=== PATIENT | male | born 1950 | race Caucasian/White ===

== ENCOUNTER → 2022-04-01 | Day surgery (SDC) | payer OTHER ==
[~2022-04-01] VITALS: Ht 185 cm; Wt 113.8 kg
[~2022-04-01] MED LIST: AMLODIPINE-BEN1 EAC2 PO; ASPIRIN CHEWABL81 MG PO; B COMPLEX1 EACH PO; CALCIUM + D3 E1 EACH PO; CHILDREN'S ASPI81 MG PO; FEOSOL325 MG PO; GLUCOTROL XL5 MG PO; JANUVIA50 M1 PO; JANUVIA50 MG PO; LIPITOR40 MG PO; LOVAZA1 GM PO; METFORMIN HCL500 MG PO; PERCOCET 5-3251 EACH PO; VITAMIN D3 PO; WELLBUTRIN XL150 MG PO
== END | disposition home or self-care (01) ==
LOC: FAS 09:30
DX: Z12.11 Encounter for screening for malignant neoplasm of colon (principal); E11.9 Type 2 diabetes mellitus without complications; F17.200 Nicotine dependence, unspecified, uncomplicated; Z79.82 Long term (current) use of aspirin
CPT/HCPCS: 82962; J2250; J2704; J7120